=== PATIENT | female | born 1980 | race Caucasian/White ===

== ENCOUNTER 2024-08-10 00:39 | Emergency (ER) | payer BC ==
[~2024-08-10] VITALS: Ht 167.6 cm; Wt 114.0 kg
[~2024-08-10 00:39] MED LIST: GLIP10TA10 PO; LEVO500T2 PO
[2024-08-10 00:47] VITALS: O2SAT 98
[2024-08-10 01:18] LABS: HEMATOCRIT. 33.4 % (36.0-48.0); HEMOGLOBIN. 10.4 g/dL (12.0-16.0); MEAN CORPUSCULAR HEMOGLOBIN 24.1 pg (28.0-32.0); MEAN CORPUSCULAR VOLUME 77.9 fL (81.0-99.0); MEAN PLATELET VOLUME 7.7 fl (7.4-10.4); PLATELET 216 x1000/uL (130-400); RED BLOOD CELL COUNT 4.29 mill/uL (4.2-5.4); RED CELL DISTRIBUTION WIDTH 18.6 % (11.6-14.6)
[2024-08-10] MEDS: SODIUM CHLORIDE 0.9% 1,000 ML IV ONE (01:18)
[2024-08-10] MEDS: ACETAMINOPHEN 1000MG/100ML 100 ML IV ONE (01:18)
[2024-08-10] MEDS: ONDANSETRON HCL 4MG/2ML INJ IV STA (01:18)
[2024-08-10] MEDS: MAGNESIUM/ALUMINUM HYDROXIDE/SIMETHICONE 30ML UDC PO STA (01:19)
[2024-08-10 01:24] LABS: CHLORIDE 109 mEq/L (98-107); POTASSIUM 3.4 mEq/L (3.5-5.1); SODIUM 139 mEq/L (136-145)
[2024-08-10 01:25] LABS: CALCIUM 8.4 mg/dL (8.7-10.4); CARBON DIOXIDE 21 mEq/L (21-32)
[2024-08-10 01:30] LABS: CREATININE 0.8 mg/dL (0.6-1.0); GLUCOSE 100 mg/dL (70-105); UREA NITROGEN BLOOD 17 mg/dL (9-23)
[2024-08-10 01:32] LABS: ALANINE AMINOTRANSFERASE 27 IU/L (10-49); ASPARTATE AMINOTRANSFERASE 66 IU/L (<34); BILIRUBIN TOTAL 0.3 mg/dL (0.1-1.0)
[2024-08-10 01:37] VITALS: TEMP 37.00296
[2024-08-10 01:40] LABS: BILIRUBIN DIRECT < 0.1 mg/dL (<=3.0)
[2024-08-10 01:58] LABS: INR 1.1; PROTHROMBIN TIME 12.2 sec (9.6-11.0)
[2024-08-10 02:11] LABS: DIFFERENTIAL COMMENT 1; WHITE BLOOD COUNT 1.1 x1000/uL (4.5-11.0)
[2024-08-10] MEDS ORDERED: ONDA4TAB50 MT (02:43)
[2024-08-10] MEDS ORDERED: MAG355OR21 MT (02:43)
[2024-08-10] MEDS ORDERED: ACET-2708 MT (02:43)
[2024-08-10 02:45] LABS: CLARITY URINE CLEAR (CLEAR); COLOR URINE YELLOW (YELLOW); GLUCOSE URINE NEGATIVE (NEGATIVE); KETONES URINE TRACE (NEGATIVE); LEUKOCYTE ESTERASE URINE NEGATIVE (NEGATIVE); NITRITE URINE NEGATIVE (NEGATIVE); OCCULT BLOOD URINE NEGATIVE (NEGATIVE); PH URINE 5.5 (4.5-8.0); PROTEIN URINE 1+ (NEGATIVE); SPECIFIC GRAVITY URINE 1.018 (1.005-1.030)
[2024-08-10 02:50] LABS: BACTERIA URINE TRACE; RBC URINE 0-2 /hpf (0-2); SQUAMOUS EPITHELIAL CELL URINE FEW /lpf (RARE/1+); WBC URINE 0-2 /hpf (0-2)
[2024-08-10 02:56] LABS: HCG SCREEN NEGATIVE
[2024-08-10 03:10] VITALS: BP 93/57; PULSE 78; RESP 14; O2SAT 98
[2024-08-10 03:27] LABS: HYPOCHROMASIA 1+; MICROCYTOSIS 1+; PLATELET ESTIMATE NORMAL
== END 2024-08-10 03:11 | disposition home or self-care (01) ==
LOC: ER 00:39
DX: D72.819 Decreased white blood cell count, unspecified (principal); D64.9 Anemia, unspecified; I10 Essential (primary) hypertension; E11.9 Type 2 diabetes mellitus without complications; Z79.899 Other long term (current) drug therapy; Z79.84 Long term (current) use of oral hypoglycemic drugs
CPT/HCPCS: 80076; 80048; 81003; 84703; 83690; 85025; 85610; 36415; 96365; 96375; 99284; J2405; J7030; Z7610 ×3; J0131